=== PATIENT | male | born 1975 | race Caucasian/White ===

== ENCOUNTER 2020-10-09 06:44 | Outpatient (CLI) | payer BC, OTHER ==
[2020-10-09] MEDS ORDERED: OMNIPAQUE 180 MG/ML, 10ML VIAL ONE (07:00)
[2020-10-09] MEDS ORDERED: LIDOCAINE-MPF 1%, 5ML ONE ×2 (07:17)
[2020-10-09] MEDS ORDERED: ROPivacaine/PF 0.2%, 10 ML ONE (07:17)
[2020-10-09] MEDS ORDERED: GADOTERATE 5 MMOL/10 ML VIAL ONE (08:10)
== END 2020-10-09 23:59 | disposition home or self-care (01) ==
LOC: RAD 06:44
PROVIDERS: ATTEND Orthopaedic Surgery
DX: M25.512 Pain in left shoulder (principal); M25.511 Pain in right shoulder; S46.011A Strain of muscle(s) and tendon(s) of the rotator cuff of right shoulder, initial encounter; S43.432A Superior glenoid labrum lesion of left shoulder, initial encounter; M19.012 Primary osteoarthritis, left shoulder; I10 Essential (primary) hypertension; M10.9 Gout, unspecified; X58.XXXA Exposure to other specified factors, initial encounter; Y93.89 Activity, other specified; Y92.89 Other specified places as the place of occurrence of the external cause; Y99.8 Other external cause status
CPT/HCPCS: 23350; 73040; 73221; 73222; A9575; Q9965; J2795